=== PATIENT | female | born 1990 | race Hispanic/Latino ===

== ENCOUNTER 2022-07-21 16:27 | Emergency (ER) | payer MEDICAID ==
[~2022-07-21] VITALS: Ht 165.1 cm; Wt 81.6 kg
[~2022-07-21 16:27] MED LIST: FERR325T22 PO; IBUP-2077 PO; PREN1TAB80 PO; SULF1TAB42 PO
[2022-07-21 16:50] LABS: BASOPHILS % (AUTO) 0.3 % (0.0-5.0); EOSINOPHILS % (AUTO) 4.1 % (0.0-8.0); HEMATOCRIT 38.7 % (36-48); LYMPHOCYTES % (AUTO) 39.7 % (21.0-51.0); MEAN CORPUSCULAR HGB CONC 33.9 g/dL (32.0-36.0); MEAN CORPUSCULAR VOLUME 91.5 fL (79-99); MONOCYTES % (AUTO) 6.1 % (3.0-13.0); NEUTROPHILS % (AUTO) 49.6 % (40.0-77.0); PLATELET COUNT (AUTO) 308 K/uL (130-400); RED BLOOD CELL COUNT(AUTO) 4.23 MIL/uL (4.00-5.50); WHITE BLOOD COUNT (AUTO) 6.6 K/uL (4.8-10.8)
[2022-07-21] MEDS ORDERED: 0.9%NACL 1000ML 1,000 ML IV ONE (17:00)
[2022-07-21 17:04] LABS: CARBON DIOXIDE 27 mmol/L (21-32); CHLORIDE 104 mmol/L (101-111); CREATININE 0.6 mg/dL (0.5-1.5); GLOMERULAR FILTR. RATE CALC 124 mL/min (>60); GLUCOSE,RANDOM 94 mg/dL (70-105); POTASSIUM 3.9 mmol/L (3.5-5.1); SODIUM SERUM 137 mmol/L (136-145); UREA NITROGEN, BLOOD 3 mg/dL (7-18)
[2022-07-21 17:06] LABS: ALANINE AMINOTRANSFERASE 43 U/L (12-78); ALBUMIN 3.5 g/dL (3.5-5.0); ASPARTATE AMINOTRANSFERASE 27 U/L (10-37); TOTAL PROTEIN, SERUM 7.2 g/dL (6.0-8.3)
[2022-07-21 17:08] LABS: LIPASE < 50 U/L (114-286)
[2022-07-21] MEDS ORDERED: ONDANSETRON 4MG INJ ONE (17:29)
[2022-07-21] MEDS ORDERED: KETOROLAC 15MG/ML VIAL (15MG/ML) ONE (17:29)
[2022-07-21] MEDS ORDERED: ONDANSETRON 4MG INJ IVP ONE (17:30)
[2022-07-21] MEDS ORDERED: MORPHINE 4 MG SYG IVP ONE (17:30)
[2022-07-21] MEDS ORDERED: KETOROLAC 15MG/ML VIAL (15MG/ML) IV ONE (17:30)
[2022-07-21] MEDS ORDERED: MORPHINE 4 MG SYG ONE (17:30)
[2022-07-21 18:22] LABS: HCG,QUALITATIVE URINE NEGATIVE (NEGATIVE)
[2022-07-21 18:31] LABS: APPEARANCE,URINE CLEAR (CLEAR); BILIRUBIN,URINE NEGATIVE (NEGATIVE); COLOR,URINE COLORLESS (YELLOW); GLUCOSE, URINE (UA) NEGATIVE (NEGATIVE); KETONES,URINE 10 mg/dL (NEGATIVE); LEUKOCYTE ESTERASE ,URINE NEGATIVE Leu/uL (NEGATIVE); NITRATE,URINE NEGATIVE (NEGATIVE); OCCULT BLOOD,URINE NEGATIVE (NEGATIVE); PROTEIN,URINE NEGATIVE (NEGATIVE); UROBILINOGEN,URINE 0.2 mg/dL (0.2-1.0)
[2022-07-21] MEDS ORDERED: NAPR500T6 PO (18:38)
[2022-07-21] MEDS ORDERED: ONDA4TAB10 PO (18:38)
[2022-07-21 18:42] VITALS: BP 117/71
== END 2022-07-21 18:50 | disposition home or self-care (01) ==
LOC: EDH 16:27
DX: K80.20 Calculus of gallbladder without cholecystitis without obstruction (principal); Z88.1 Allergy status to other antibiotic agents; Z88.0 Allergy status to penicillin; Z79.899 Other long term (current) drug therapy; Z98.890 Other specified postprocedural states
CPT/HCPCS: 99284; 96374; 76705; 96375; 96361; 80053; 83690; 85025; 81003; 81025; 36415; J7030; J2405; J2270; J1885

== ENCOUNTER 2022-08-21 04:47 | Emergency (ER) | payer OTHER, MEDICAID ==
[~2022-08-21] VITALS: Ht 165.1 cm; Wt 81.6 kg
[~2022-08-21 04:47] MED LIST changes: +NAPR500T6 PO; +ONDA4TAB10 PO
[2022-08-21 05:16] LABS: BASOPHILS % (AUTO) 0.4 % (0.0-5.0); EOSINOPHILS % (AUTO) 2.3 % (0.0-8.0); HEMATOCRIT 36.7 % (36-48); LYMPHOCYTES % (AUTO) 36.2 % (21.0-51.0); MEAN CORPUSCULAR HEMOGLOBIN 31.1 pg (27.0-33.0); MEAN CORPUSCULAR HGB CONC 33.5 g/dL (32.0-36.0); MEAN CORPUSCULAR VOLUME 92.9 fL (79-99); MONOCYTES % (AUTO) 5.9 % (3.0-13.0); NEUTROPHILS % (AUTO) 54.8 % (40.0-77.0); PLATELET COUNT (AUTO) 305 K/uL (130-400); RED BLOOD CELL COUNT(AUTO) 3.95 MIL/uL (4.00-5.50); RED CELL DISTRIBUTION WIDTH 13.2 % (11.0-15.5); WHITE BLOOD COUNT (AUTO) 9.3 K/uL (4.8-10.8)
[2022-08-21 05:21] LABS: APPEARANCE,URINE CLOUDY (CLEAR); BILIRUBIN,URINE NEGATIVE (NEGATIVE); COLOR,URINE LIGHT-YELLOW (YELLOW); GLUCOSE, URINE (UA) NEGATIVE (NEGATIVE); KETONES,URINE NEGATIVE (NEGATIVE); LEUKOCYTE ESTERASE ,URINE 75 Leu/uL (NEGATIVE); NITRATE,URINE NEGATIVE (NEGATIVE); PH,URINE 6.5 (5.0-8.0); PROTEIN,URINE NEGATIVE (NEGATIVE); UROBILINOGEN,URINE 0.2 mg/dL (0.2-1.0)
[2022-08-21 05:26] LABS: CREATININE 0.7 mg/dL (0.5-1.5); HCG,QUALITATIVE URINE NEGATIVE (NEGATIVE); POTASSIUM 3.9 mmol/L (3.5-5.1)
[2022-08-21 05:30] LABS: BACTERIA,URINE RARE /HPF (None Seen); MUCUS,URINE RARE LPF (None Seen); SQUAMOUS EPITHELIAL CELL,UR MANY /HPF (0-2)
[2022-08-21 05:37] LABS: ALBUMIN 3.3 g/dL (3.5-5.0); TOTAL PROTEIN, SERUM 6.9 g/dL (6.0-8.3)
[2022-08-21] MEDS ORDERED: KETOROLAC 15MG/ML VIAL (15MG/ML) ONE (05:38)
[2022-08-21] MEDS ORDERED: LEVOFLOXACIN 750 MG/D5W 150ML BAG IVPB STA (05:57)
[2022-08-21] MEDS ORDERED: KETOROLAC 15MG/ML VIAL (15MG/ML) IV ONE (06:00)
[2022-08-21] MEDS ORDERED: ONDANSETRON 4MG INJ IVP ONE (06:00)
[2022-08-21] MEDS ORDERED: 0.9%NACL 1000ML 1,000 ML IV ONE (06:00)
[2022-08-21] MEDS ORDERED: DICY20TA2 PO (07:15)
[2022-08-21] MEDS ORDERED: LEVO750T68 PO (07:15)
[2022-08-21 09:27] VITALS: BP 103/59
== END 2022-08-21 09:35 | disposition home or self-care (01) ==
LOC: EDH 04:47
DX: K80.20 Calculus of gallbladder without cholecystitis without obstruction (principal); N39.0 Urinary tract infection, site not specified; Z79.1 Long term (current) use of non-steroidal anti-inflammatories (NSAID); Z88.0 Allergy status to penicillin
CPT/HCPCS: 99285; 96374; 76705; 96375; 80053; 83690; 85025; 87088; 81001; 81025; 36415; J1956; J7030; J2405; J1885